=== PATIENT | male | born 1970 | race Caucasian/White ===

== ENCOUNTER 2018-09-25 19:47 | Emergency (ER) | payer SELFPAY ==
--- NOTE | 2018-09-25 19:56 | NUR ---
Patient did not want to be traiged or seen by RA stating "I am fine. I just come back if my pain comes back." Was not traiged or seen by RA
== END 2018-09-25 19:58 | disposition left against medical advice (07) ==
LOC: ER 19:50
DX: Z53.21 Procedure and treatment not carried out due to patient leaving prior to being seen by health care provider (principal)